=== PATIENT | female | born 1985 | race African-American/Black ===

== ENCOUNTER 2017-05-13 01:14 | Emergency (ER) | payer MEDICAID ==
[~2017-05-13] VITALS: Ht 170.2 cm; Wt 82.0 kg
[~2017-05-13 01:14] MED LIST: TRAM7.5P2
[2017-05-13] MEDS ORDERED: DIPHENHYDRAMINE 50MG/ML VIAL IV ONE (02:30)
[2017-05-13] MEDS ORDERED: METHYLPREDNISOLONE SOD SUCC 125 MG/2 ML VIAL IV ONE (02:30)
[2017-05-13 02:49] LABS: EOSINOPHILS % 2.7 % (0.0-5.0); HEMATOCRIT. 37.8 % (36.0-48.0); HEMOGLOBIN. 12.5 g/dL (12.0-16.0); MEAN CORPUSCULAR HEMOGLOBIN 28.4 pg (28.0-32.0); MEAN CORPUSCULAR VOLUME 85.8 fL (81.0-99.0); MEAN PLATELET VOLUME 9.2 fl (7.4-10.4); MONOCYTES % 7.6 % (2.0-8.0); NEUTROPHILS % 47.7 % (40.0-76.0); PLATELET 216 x1000/uL (130-400); RED CELL DISTRIBUTION WIDTH 13.5 % (11.6-14.6)
[2017-05-13 03:16] LABS: CHLORIDE 106 mEq/L (98-107)
[2017-05-13 06:15] VITALS: BP 104/57
== END 2017-05-13 06:23 | disposition home or self-care (01) ==
LOC: ER 01:14
DX: E05.90 Thyrotoxicosis, unspecified without thyrotoxic crisis or storm (principal); T78.40XA Allergy, unspecified, initial encounter; I10 Essential (primary) hypertension; X58.XXXA Exposure to other specified factors, initial encounter
CPT/HCPCS: 36415; 76536; 80048; 84443; 85025; 96374; 96375; 99285; J1200; J2930; Z7610